=== PATIENT | male | born 1975 | race Caucasian/White ===

== ENCOUNTER 2016-12-31 10:44 | Emergency (ER) | payer BC ==
[~2016-12-31] VITALS: Ht 172.7 cm; Wt 87.2 kg
[2016-12-31 13:06] VITALS: BP 120/66
== END 2016-12-31 13:06 | disposition home or self-care (01) ==
LOC: ED 10:44
DX: R51 Headache (principal)

== ENCOUNTER 2020-02-01 17:22 | Emergency (ER) | payer BC ==
[~2020-02-01] VITALS: Ht 165.1 cm; Wt 100.7 kg
[2020-02-01 17:33] VITALS: Ht 165.1 cm; Wt 100.7 kg
[2020-02-01 18:13] LABS: BASOPHIL % 0.3 % (0-2); PLATELET COUNT 260 x10^3mcL (130-400); RED CELL DISTRIBUTION WIDTH 12.8 % (11.5-14.5)
[2020-02-01 18:25] LABS: CALCIUM 8.5 mg/dL (8.5-10.1); CARBON DIOXIDE 28.6 mmol/L (21-32); CHLORIDE SERUM 102 mmol/L (98-107); CREATININE SERUM 1.3 mg/dL (0.7-1.3); GFR1 > 60 mL/min; GLUCOSE SERUM 80 mg/dL (74-106); POTASSIUM SERUM 3.7 mmol/L (3.5-5.1); SODIUM SERUM 139 mmol/L (136-145)
[2020-02-01 18:29] LABS: ALBUMIN 4.1 g/dL (3.4-5.0); ALKALINE PHOSPHATASE 77 U/L (46-116); ALT/SGPT 55 U/L (16-63); AST/SGOT 28 U/L (15-37); BILIRUBIN TOTAL 0.6 mg/dL (0.20-1.00); TOTAL PROTEIN, SERUM 7.4 g/dL (6.4-8.2)
[2020-02-01 19:21] VITALS: BP 117/67
== END 2020-02-01 19:21 | disposition home or self-care (01) ==
LOC: ED 17:22
PROVIDERS: Emergency Medicine
DX: R42 Dizziness and giddiness (principal); R53.1 Weakness
CPT/HCPCS: 36415; Q0092